=== PATIENT | female | born 1955 | race Caucasian/White ===

== ENCOUNTER 2025-02-20 10:22 | Emergency (ER) | payer MEDICARE, MEDICAID, SELFPAY ==
[2025-02-20] VITALS (10 sets, daily range): BP systolic 146–212; BP diastolic 86–111; PULSE 63–78; RESP 16–20; TEMP 36.7–37.1; O2SAT 91–100; BMI 30.1
--- NOTE | 2025-02-20 10:50 | PC.NURSE ---
sent from [facility] for mental eval due to pt being agitated, roaming the halls, and thinking that the medication she is being given are the wrong meds for her
--- NOTE | 2025-02-20 11:40 | EDNOTE_ITS ---
<Statement entered by Justine Dobbs MD - 02/22/25 18:56> As co-signing physician, I was present and available for consult prn. I concur with the plan and care as documented by the midlevel provider. ED Psych RME/HPI General Chief Complaint: Psychiatric Symptoms Stated Complaint: MENTAL HEALTH EVAL Time Seen by Provider: 02/20/25 11:36 Arrival date/time: 02/20/25 10:22 RME / HPI RME / HPI Narrative: 69-year-old female patient with significant history of chronic schizophrenia, was brought in from senior care in [place] due to agitation, refusing to take her medication and worsening mental health. On my initial evaluation patient answers question appropriately, she denies any homicidal suicidal ideations she denies any complaints. Related Data Home Medications ?Medication ?Instructions ?Recorded ?Confirmed No Known Home Medications 04/23/2103/30 Allergies Allergy/AdvReac Type Severity Reaction Status Date / Time No Known Allergies Allergy Verified 05/01/19 11:01 Review of Systems Review of Systems Narrative Review of Systems: Review of system reviewed and within normal limits except mentioned in HPI ED Exam Narrative Physical exam: VITAL SIGNS: Reviewed. GENERAL APPEARANCE: Alert and interactive, follows commands, no acute distress, HEAD AND FACE: Non-traumatic. ENT: PERRL, pink conjunctivitis, eyelid no trauma, Mucous membrane moist. NECK: Supple, nontender, no nuchal rigidity. CHEST: No tenderness, no crepitus, no paradoxical movement, no retractions. LUNGS: Clear, well ventilated, symmetric, no rales, no wheezing, no ronchi, no stridor, good breath sounds bilaterally. HEART: Regular rate, regular rhythm, no murmur, no gallops. ABDOMEN: Soft, positive bowel sounds, nondistended, no guarding, nontender, no rebound, no masses, RECTAL: Deferred. GENITAL: Deferred. NEUROLOGICAL: Gross motor function intact sensory function intact, Appropriate for age. MUSCULOSKELETAL: low back nontender, full range of motion. EXTREMITIES: Nontender, full range of motion. SKIN: Color pink, dry, no rash, no lacerations, no abrasions, no contusions. LYMPHATICS: Deferred. Course Quality Measures none Orders Category Date Time Status Acetaminophen Stat Lab 02/20/25 11:57 Completed Alcohol, Blood Medical Stat Lab 02/20/25 11:57 Completed CBC Stat Lab 02/20/25 11:57 Completed CMP [Comprehensive Metabolic Panel] Stat Lab 02/20/25 11:57 Completed Drug Screen,Urine Stat Lab 02/20/25 13:45 Completed HCG Qualitative,Urine Stat Lab 02/20/25 13:45 Completed Salicylate Stat Lab 02/20/25 11:57 Completed Urinalysis Stat Lab 02/20/25 13:45 Completed hydrALAZINE HCL [Apresoline] Med 02/20/25 17:38 Discontinued 50 mg PO X1 ONE Vital Signs Vital signs: Vital Signs Temperature 98.4 F 02/20/25 10:50 Pulse Rate 78 02/20/25 10:50 Respiratory Rate 16 02/20/25 10:50 Blood Pressure 181/93 H 02/20/25 10:50 Pulse Oximetry (%) 100 02/20/25 10:50 Oxygen Delivery Method Room Air 02/20/25 10:50 Psych MDM Narrative MDM Narrative:: 69-year-old female patient with significant history of chronic schizophrenia, was brought in from senior care in [place] due to agitation, refusing to take her medication and worsening mental health. On my initial evaluation patient answers question appropriately, she denies any homicidal suicidal ideations she denies any complaints. Patient is medically cleared for crisis intervention Patient's workup all came back unremarkable. Patient was transferred to [facility]. Patient data External records reviewed:: None Clinical information provided by:: patient Social determinants that could affect healthcare access:: none Patient has the following chronic illnesses:: Chronic schizophrenia How is presenting disease/condition affected by chronic disease/condition?: exacerbated by Evaluation data The following diagnostics were reviewed and interpreted by me:: lab results Lab and/or radiology exams considered but not ordered:: None Interpretation Summary: Patient's laboratory workup all came back unremarkable urinalysis is contaminated Medications / Prescriptions Medications or Prescriptions considered but not ordered:: None Medication administrations:: Medication Administration History Discontinued Medications Hydralazine HCl (Hydralazine Hcl 25 Mg Tablet) 50 mg PO X1 ONE Stop: 02/20/25 17:39 Last Admin: 02/20/25 18:47 Dose: 50 mg Documented By: [facility] None Consultations Consultation(s) initiated? (list below): No Diagnosis Psych Differential Diagnosis: chronic schizophrenia and acute anxiety Most likely diagnosis given after review of the tests above:: Chronic schizophrenia Admission Indicated Admission indicated?: indicated Explain why admission is indicated or not indicated:: Patient needs inpatient mental facility admission Admission Request Was there a request for admission?: No Disposition Plan Disposition Plan: Transfer Discharge Plan Plan Patient Disposition: [facility] Prescriptions/Referrals Prescriptions/Med Rec: No Action No Known Home Medications Referrals: No Primary/Family,Physician [Primary Care Provider] - In 1 week Problem List Clinical Impression: Acute psychosis, Chronic schizophrenia Patient/Caregiver Discharge Instructions Print Language: [place] Stand Alone Forms: [facility] Award Info., Patient Portal Info Letter
--- NOTE | 2025-02-20 11:40 | PC.NURSE ---
SHADE N/P IN TO SEE PT
[2025-02-20 12:11] LABS: Basophils % (Auto) 0 % (0-2.5); Eosinophils # (Auto) 0.1 Thou/mm3 (0.0-0.5); Eosinophils % (Auto) 1 % (0-10); Hematocrit 39.7 % (36.0-46.0); Hemoglobin 13.3 g/dL (12.0-16.0); Immature Granulocytes % (Auto) 0 % (0-0); Immature Granulocytes Auto 0.03 Thou/mm3 (0.00-0.00); Lymphocytes # (Auto) 1.8 Thou/mm3 (1.0-4.8); Lymphocytes % (Auto) 25 % (10-50); Mean Corpuscular HGB Conc 33.5 g/dl (31.0-37.0); Mean Corpuscular Volume 93 fL (80-100); Monocytes # (Auto) 0.4 Thou/mm3 (0.0-0.8); Monocytes % (Auto) 6 % (0-12); Neutrophils # (Auto) 4.9 Thou/mm3 (1.8-7.7); Neutrophils % (Auto) 68 % (37-80); Nucleated Red Blood Cell % 0 /100 WBC (0); Platelet Count 252 Thou/mm3 (140-440); RDW Standard Deviation 41.4 fL (36.4-46.3); Red Blood Count 4.29 Miln/mm3 (4.00-5.20); White Blood Count 7.2 Thou/mm3 (3.6-11.0)
[2025-02-20 12:33] LABS: Acetaminophen < 2.0 mcg/mL (10.0-20.0); Alanine Aminotransferase 17 U/L (10-49); Albumin, Serum 4.5 gm/dL (3.4-4.8); Albumin/Globulin Ratio 1.9 (1.2-2.2); Alcohol, Blood Medical < 3.0 mg/dL (0-10.0); Alkaline Phosphatase 118 U/L (46-116); Anion Gap 7 (7-16); Aspartate Amino Transferase 17 U/L (0-34); BUN/Creatinine Ratio 10 Ratio (12-20); Bilirubin,Total 0.4 mg/dL (0.3-1.2); Blood Urea Nitrogen 8 mg/dL (9-23); Calcium 9.2 mg/dL (8.3-10.6); Calcium (Corrected) 9.2 mg/dL (8.5-10.1); Carbon Dioxide 30.3 mMol/L (20.0-31.0); Chloride 103 mMol/L (98-107); Creatinine (Component) 0.8 mg/dL (0.6-1.3); Estimated Creatinine Clearance 67.1 mL/min (>60); Globulin 2.4 gm/dL (2.3-3.5); Glucose 102 mg/dL (74-106); Osmolality,Calculated 277 (275-295); Potassium 3.8 mMol/L (3.4-5.1); Salicylate < 3.0 mg/dL; Sodium 140 mMol/L (136-145); Total Protein 6.9 gm/dL (5.7-8.2); eGFR > 60 See Note
--- NOTE | 2025-02-20 13:49 | PC.NURSE ---
PT INCONTINENT LARGE AMT URINE BUT STILL ABLE TO VOID ON BEDPAN, LINEN AND PT GOWN CHANGED AND NEW INCONT CREIF PUT ON
[2025-02-20 13:54] LABS: Collection Type, Urine Clean Catch
[2025-02-20 14:01] LABS: HCG Qualitative,Urine Negative
[2025-02-20 14:04] LABS: Bacteria,Urine 1+; Bilirubin,Urine Negative (Negative); Blood,Urine Trace (Negative); Color,Urine Lt-Yellow (Lt Yel-Yel); Glucose, Urine Negative (Negative); Ketones,Urine Negative (Negative); Leukocyte Esterase,Urine Positive (Negative); Nitrite,Urine Negative (Negative); Protein,Urine Negative (Neg - Trace); RBC,Urine 61 /hpf (0-3); Specific Gravity,Urine 1.007 (1.001-1.035); Squamous Epithelial Cell,Urine 37 /hpf (0-5); Urobilinogen,Urine Negative mg/dL (0.0-1.0); WBC,Urine 173 /hpf (0-5)
[2025-02-20 14:10] LABS: Clarity,Urine Hazy (Clear/Hazy)
[2025-02-20 14:11] LABS: Amphetamine/Methamp Scrn,U Negative (Negative); Barbiturate Screen,Urine Negative (Negative); Benzodiazepines Screen,Urine Negative (Negative); Benzoylecgonine Screen, Ur Negative (Negative); Fentanyl Screen,Urine Negative (Negative); Opiate Screen,Urine Negative (Negative); THC Screen,Urine Negative (Negative)
--- NOTE | 2025-02-20 14:30 | PC.NURSE ---
PT CONTINUES TO YELL AT NURSE WITH ANSWERS TO ANY QUESTIONS.
--- NOTE | 2025-02-20 15:45 | PC.CC ---
Patient is a 69 year-old female who presents to the hospital for mental health evaluation from [facility] due to bizarre behavior and not being compliant with her psychotropic medication. SHIWKhushbu and DANCE HALL HOST/HOSTESS Student, Lyubov made face to face contact with patient introduced selves, roles, and reason for visit. Patient provided consent for DANCE HALL HOST/HOSTESS Student to remain in the room during assessment. Patient presents as alert and oriented to self and location. ASW disclosed limits of confidentiality as well. Patient made appropriate eye contact. Patient?s thought process was disorganized, delusional, and bizarre statements. Patient stated ?I?m okay I just wanted to check in and out. I need to go check my mail.? This abstract writer explored with patient if she had a history of mental health which she shook her head left to right motion and became agitated. ASW had to redirect patient to remain in bed. Patient would not respond to questions of suicidal and homicidal ideations, visual and auditory hallucination. ASW made telephone contact with [facility] spoke to MICHAEL Gibson who reports that patient has a mental health diagnosis of Schizophrenia and has not been compliant with her medication. Patient is prescribed Risperidone 1mg/1x day, Buspirone 7.5mg 2x/day, Lorazepam 0.5 mg 2x/day by a psychiatrist the facility is contracted with. It was reported that patient had not showered in a week and has been walking around the facility stomping and attempting to swing her walker in the air. MICHAEL reports patient has been having auditory hallucinations reports that celebrities have been speaking to her. Per MICHAEL Gibson, at baseline patient usually baths daily and will clean herself in the middle of the day which she has not done. Patient will engage in activies and participate she has been isolating herself, but when she does engage in activities she beings to scream at staff and other residents. Patient at baseline is alert and oriented to self, location and situation is typically happy and enjoys being around other. Patient has been on a 5150-hold in the past. Per MIKE Hoffman, patient states she does not believe she is on the right medication. Patient?s Edmunds Screening is Low-Risk. Patient is able to ambulate with and without her walker and can complete her own ADLs. Upon clinical consultation with Kiah TEIXEIRA the patient will be placed on a 5150-Hold for Gravely Disabled due to her mental health deteriorating and not being compliant with her psychotropic medication. ASW provided 5150-hold advisement to patient and patient?s rights handbook. ASW provided update of discharge plan to Dr. Polanco, assembler tester Mai, and bedside RN Dalton. ASW to send referral to LPS facilities via [employer].
--- NOTE | 2025-02-20 16:22 | PC.NURSE ---
PT NOW ON 5150 HOLD PER P[facility] OUT [facility]
--- NOTE | 2025-02-20 16:31 | PC.NURSE ---
CALL RECEIVED FROM [facility]EL[facility] BONILLA IN [place] AND NOT [place]
--- NOTE | 2025-02-20 17:29 | PC.NURSE ---
CALL RECEIVED FROM [facility], REPORT GIVEN, WHEN TOLD PT WEARS A BRIEF AND IS INCONTINENT AT TIMES THEY STATED COULD NOT ACCEPT
--- NOTE | 2025-02-20 17:33 | PC.CC ---
Khushbu ZUÑIGA was informed that patient was declined by [facility].
--- NOTE | 2025-02-20 18:02 | PC.CC ---
Khushbu ZUÑIGA was informed that patient is not incontinent and does ambulate independently at the care facility, per MICHAEL Gibson.
[2025-02-20] MEDS: hydrALAZINE HCL 25 MG TABLET 50 MG PO (18:47)
--- NOTE | 2025-02-20 20:45 | PC.NURSE ---
LAMAR FROM [facility] CALLED TO GET NURSE TO NURSE REPORT WILL CALL BACK AFTER REVIEWING PACKET TO DECIDE IF THEY WILL ACCEPT PATIENT.
--- NOTE | 2025-02-20 23:39 | PC.NURSE ---
BLADDER SCAN WAS REDONE. BLADDER SCAN DEMONSTRATES 376ML
--- NOTE | 2025-02-21 00:17 | PC.NURSE ---
2239 PT ACCEPTED TO [address] PT WILL GO TO [address]. PT ACCEPTED BY DR MONTEZ.
--- NOTE | 2025-02-21 00:20 | PC.NURSE ---
2330 RECEIVED CALL FROM [facility] ([facility]) STATING THEY HAD CALLED PT SNF AND THE INFORMATION THEY RECEIVED FROM SNF WILL PREVENT THEM FROM ACCEPTING PT. PT DECLINED FOR TRANSFER AT THIS TIME.
--- NOTE | 2025-02-21 00:30 | PC.NURSE ---
THIS RN AND TECH WENT INTO PTS ROOM TO CHANGE HER BRIEF AND SHEETS BECAUSE THEY WERE SOILED. PT STARTS RAISING VOICE TO RN AND TECH. THIS RN TRIED TO REDIRECT AND CALM PT. PT STILL WAS REALLY AGITATED AND AGGRESSIVE. PT REPEATED CURSED TO PT AND TECH. THIS RN AND TECH SUCCESSFULLY CHANGES PTS BRIEF AND SHEETS. PT CONTINUED TO CURSE AT RN AND YELLING. PROVIDER WAS NOTIFIED OF SITAUTION.
[2025-02-21] MEDS: DiphenhydrAMINE INJ 50 MG/ML VIAL IM (00:49)
[2025-02-21] MEDS: HALOPERIDOL LACT INJ 5 MG/ML VIAL IM (00:49)
[2025-02-21] MEDS: LORazepam 2 MG/ML VIAL IM (00:50)
--- NOTE | 2025-02-21 02:42 | PC.NURSE ---
PT WAS SOILED WITH FECES. THIS RN WITH HELP FROM SANDRA MCKEON AND KWAME VEGA WERE ABLE TO CLEAN PT AND REPLACE SHEETS, GOWN, AND BRIEF
--- NOTE | 2025-02-21 07:04 | PC.CC ---
Khushbu ZUÑIGA received patient's medication list provided by Facility MICHAEL Gibson and provided list to dock manager Lanise and provider, Dr. Leiva.
--- NOTE | 2025-02-21 07:24 | PC.CC ---
Provider will be requesting for a PT eval.
[2025-02-21 07:54] VITALS: BP 128/78; PULSE 73; RESP 18; TEMP 36.7; O2SAT 96
--- NOTE | 2025-02-21 07:54 | PC.NURSE ---
pt resting comfortably in bed, vital signs were taken and pt was pulled up and repositioned. no needs were expressed at this time and pt was made aware that breakfast will be coming soon.
--- NOTE | 2025-02-21 08:45 | PC.NURSE ---
PT UP AND OUT OF BED, WALKING DOWN RUIZ WITH WALKER TO THE RESTROOM, ASSISTED BY INSURANCE SALES AGENT.
--- NOTE | 2025-02-21 08:52 | PC.CC ---
Patient is a 17 year-old female who presents to the hospital for a mental health evaluation due to suicidal ideations. Patient called the crisis hotline number and [facility] was dispatched to the home. Christiano made [id number] contact with patient to complete assessment. ASW introduced self, role, and reason for assessment. ASW disclosed limits of confidentiality as well. Patient appeared alert and oriented to self, place, and situation. Patient made appropriate eye contact with this process description writer. Patients mood appeared to be euthymic and remained engaged in assessment, patient had good insight and judgement. No signs of delusions, paranoid or V/h. Patient reports she has been having suicidal ideations for the past year but has not had a plan or intention until last night. Patient reports she did not want to kill herself and knew to call the hotline number for help. Patient reports she has been home and the adoptive mother does not want them to engage in the ?outside world.? Patient reports she feels sheltered and would like to go live with her biological mother in [place]. At the time of encounter the patient is denying suicidal and homicidal ideations and visual and auditory hallucinations. Patient reports she has never been connected to outpatient mental health services. Patient denied past suicide attempts and being placed on a 5150-hold in the past. Patient reports she had a medical appointment yesterday and they were going to refer to her outpatient mental health services. Patient reports that during free time she likes to play sports such as basketball and volleyball. Per patient, she is open to safety planning and returning home. ? Patient reports she feels safe at home. ASW made telephone contact with adoptive mother, Ysabel Velazquez . The mother reports that the patient has been more irritable lately which is causing conflict in the home. Patient has been threatening to go live with her biological mother. Ysabel reports the patient is not connected to outpatient mental health services. Ysabel is open to safety planning as she does not feel that her daughter need psychiatric placement at this time but could benefit from outpatient mental health services. ? Upon clinical consultation with DIRECT MAIL MANAGER, Kiah Dubois patient?s 5585-hold will be rescinded and safety plan will be established. Safety plan established with patient and mother Ysabel is that mother will ensure all medications and sharps are locked and secured, Ysabel to provide extra supervision for the next 72 hours, there are no firearms in the home, outpatient mental health appointment was schedule with [facility] ([facility]) for tomorrow February 22, 2025 at 8:30am. Mother is to ensure patient attends this appointment. ASW instructed mother to go through patient?s personal belongings for any sharp, ligature, or medications. Patient was instructed that if she beings to endorse suicidal or homicidal ideations she can return back to the hospital including any visual or auditory hallucinations. Patient was also provided to [facility] Community Resource Guide with information to outpatient mental health services as well as the 988 number and WarmLine number.
--- NOTE | 2025-02-21 09:05 | PC.NURSE ---
After breakfast pt was assisted by this typewriter aligner to restroom via walker and back to bed with no issues or complaints, pt now resting comfortably in bed and given a warm blanket. no others needs expressed at this time.
[2025-02-21 09:10] VITALS: BP 128/64; PULSE 85; RESP 17; TEMP 36.1; O2SAT 95
--- NOTE | 2025-02-21 09:39 | PC.CC ---
Khushbu ZUÑIGA sent updated packet to [facility] Via [employer].
--- NOTE | 2025-02-21 09:45 | PC.NURSE ---
PHARMACY CALLED FOR ORDERED MEDS.
--- NOTE | 2025-02-21 10:16 | PC.CC ---
Evans Rueda with [facility] made telephone contact with ASW requesting an EKG and wanting to get nurse to nurse from MIKE Smith. ASW requested the EKG and transferred call to bedside MIKE Smith.
--- NOTE | 2025-02-21 10:21 | EKG_ITS ---
[facility] Test Date: 2025-02-21 Pat Name: ROYER OVERTON Department: Room: - Gender: Female Organ Installer: : 1955 Requested By: Juli Polanco Order Number: [id number] Reading MD: Juli Polanco Measurements Intervals Daisy Rate: 95 P: 60 WY: 178 QRS: -12 QRSD: 105 T: 34 QT: 335 QTc: 421 Interpretive Statements SINUS RHYTHM MODERATE VOLTAGE CRITERIA FOR LVH, CONSIDER NORMAL VARIANT [MEETS CRITERIA IN ONE OF: R(aVL), S(V1), R(V5), R(V5/V6)+S(V1)] No previous ECG available for comparison /store/S0/[id number].pdf
[2025-02-21] MEDS: Aspirin 325 MG TABLET PO (10:27)
[2025-02-21] MEDS: DOCUSATE SOD 100 MG CAPSULE PO (10:27)
[2025-02-21 10:28] VITALS: BP 159/90; PULSE 98
[2025-02-21] MEDS: amLODIPine BESYLATE 5 MG TABLET PO (10:28)
[2025-02-21] MEDS: CLOPIDOGREL BISULFATE 75 MG TABLET PO (10:31)
[2025-02-21] MEDS: levETIRAcetam 250 MG TABLET 500 MG PO (10:31)
[2025-02-21 10:32] VITALS: BP 159/90; PULSE 85
[2025-02-21] MEDS: Lisinopril 20 MG TABLET PO (10:32)
[2025-02-21] MEDS: PANTOPRAZOLE 40 MG TABLET PO (10:32)
[2025-02-21] MEDS: CHOLECALCIFEROL (Vitamin D3) 1,000 IU TABLET 1000 IU PO (10:33)
[2025-02-21] MEDS: risperiDONE 1 MG TABLET PO (10:34)
--- NOTE | 2025-02-21 10:43 | PC.CC ---
Khushbu ZUÑIGA sent MARS and EKG to Evans from [facility].
--- NOTE | 2025-02-21 10:58 | PC.CC ---
Evans Rueda from [facility] provided accepting information. Dr. Man is accepting into Unit E. ASW provided update discharge plan to Dr. Leiva, operations developer Mai, and bedside RN Sarah. ASW made telephone contact with Arthur at [facility] to provide them with the updated information. ASW to arrange transportation.
--- NOTE | 2025-02-21 11:42 | EDNOTE_ITS ---
Emergency Room Addendum Addendum Narrative: 0600: Care assumed from Dr. Dobbs, the previous shift emergency physician. Past medical, surgical, social and family history reviewed. Vitals and home medications reviewed. I will assume the care of the patient at this time, pending LPS facility placement. Patient evidently had been accepted at [facility]. However, was notified by RN that since shift change they have reversed acceptance and are requesting EKG. Please refer to the emergency department record for history and examination from initial visit.?The following addendum documentation note is intended to reflect any pending information, findings, or radiology results not included in the patient?s initial chart. EKG: interpreted by me 02/21/2025 @ 10:24 AM. Sinus rhythm, rate 95, no axis deviation, no ischemia, no STEMI. Notified by ED certified social workers in health care the patient has been accepted at [facility]. 1315: EMS here to transfer the patient. Patient has remained stable through ED course and transferred in stable condition.
[2025-02-21 12:30] VITALS: BP 132/86; PULSE 109; RESP 20; TEMP 36.3; O2SAT 96
== END 2025-02-21 13:09 ==
PROVIDERS: Nurse Practitioner Family; Emergency Provider Emergency Medicine
DX: Z00.8 Encounter for other general examination (principal); F20.9 Schizophrenia, unspecified; R94.31 Abnormal electrocardiogram [ECG] [EKG]; Z75.1 Person awaiting admission to adequate facility elsewhere
CPT/HCPCS: 36415; 80053; 80307; 80320; 80329; 81001; 81025; 85025; 96127; 96372; 99285; J1200; J1630; J2060; A9270; G0480